=== PATIENT | male | born 1980 | race Caucasian/White ===

== ENCOUNTER 2025-01-25 21:00 | Emergency (ER) | payer BC, OTHER ==
[2025-01-25 21:15] VITALS: TEMP 98; BMI 38.2
[2025-01-25] MEDS ORDERED: FAMOTIDINE 20 MG/50 ML IVPB 20 MG/50 ML MG IVPB ONE (21:44)
[2025-01-25] MEDS ORDERED: PANTOPRAZOLE SODIUM 40 MG VIAL ONE (21:44)
[2025-01-25] MEDS: FAMOTIDINE 20 MG/50 ML IVPB 20 MG/50 ML MG IVPB ONE (21:56)
[2025-01-25] MEDS: PANTOPRAZOLE SODIUM 40 MG VIAL IVPUSH ONE (21:56)
[2025-01-25] MEDS: SODIUM CHLORIDE 0.9% 500 ML INFUS.BAG IV ONE (21:56)
[2025-01-25 22:20] LABS: ALBUMIN 3.6 g/dl (3.4-5.0); BLOOD UREA NITROGEN 16.2 mg/dL (7-18); CALCIUM 9.7 mg/dL (8.5-10.1)
[2025-01-25 22:23] LABS: CREATININE 1.2 mg/dL (0.55-1.3)
[2025-01-25 22:25] LABS: BILIRUBIN,TOTAL 0.5 mg/dL (0.2-1); TOT PROT 6.8 g/dl (6.4-8.2)
[2025-01-25 23:16] LABS: HCV DIAGNOSTIC IN-HOUSE W/RFLX NON-REACTIVE (NONREACTIVE); HIV INTERPRETATION NEGATIVE (NEGATIVE)
[2025-01-25] MEDS ORDERED: KETOROLAC TROMETHAMINE 15 MG/ML VIAL ONE (23:20)
[2025-01-25] MEDS: KETOROLAC TROMETHAMINE 15 MG/ML VIAL IVPUSH ONE (23:22)
[2025-01-26 00:17] LABS: EPI CELLS 2 /uL (0-25.1); HYALINE CASTS 0 /uL (0-3.1); PH,URINE 5.5 (5.0-8.0); URINE APPEARANCE CLEAR; URINE BACTERIA 7 /uL (0-1359); URINE BILIRUBIN NEGATIVE (NEGATIVE); URINE COLOR YELLOW; URINE GLUCOSE (UA) NEGATIVE (NEGATIVE); URINE KETONE NEGATIVE (NEGATIVE); URINE LEUK ESTERASE NEGATIVE (NEGATIVE); URINE NITRITE NEGATIVE (NEGATIVE); URINE PROTEIN 1+ (NEGATIVE); URINE RBC 6 /uL (0-23.9); URINE UROBILINOGEN 0.2 mg/dL (0.2-1.0); URINE WBC 3 /uL (0-25.8)
[2025-01-26] MEDS ORDERED: KETOROLAC TROMETHAMINE 15 MG/ML VIAL ONE (00:46)
[2025-01-26] MEDS: KETOROLAC TROMETHAMINE 15 MG/ML VIAL IVPUSH ONE (01:00)
[2025-01-26] MEDS ORDERED: morphine SULFATE 4 MG/ML VIAL ONE (02:22)
[2025-01-26 02:31] VITALS: BP 133/75; PULSE 64; RESP 20
[2025-01-26] MEDS: morphine SULFATE 4 MG/ML VIAL IVPUSH ONE (02:31)
== END 2025-01-26 02:57 | disposition home or self-care (01) ==
LOC: JER 21:00
PROC: 3E033GC Introduction of Other Therapeutic Substance into Peripheral Vein, Percutaneous Approach (ICD-10-PCS; principal; 2025-01-25)
PROC: 3E033GC Introduction of Other Therapeutic Substance into Peripheral Vein, Percutaneous Approach (ICD-10-PCS; 2025-01-25)
PROC: 3E0333Z Introduction of Anti-inflammatory into Peripheral Vein, Percutaneous Approach (ICD-10-PCS; 2025-01-25)
PROC: 3E033NZ Introduction of Analgesics, Hypnotics, Sedatives into Peripheral Vein, Percutaneous Approach (ICD-10-PCS; 2025-01-26)
PROC: 3E0333Z Introduction of Anti-inflammatory into Peripheral Vein, Percutaneous Approach (ICD-10-PCS; 2025-01-26)
DX: R10.13 Epigastric pain (principal); R19.7 Diarrhea, unspecified; T39.1X1A Poisoning by 4-Aminophenol derivatives, accidental (unintentional), initial encounter; R10.11 Right upper quadrant pain; M54.6 Pain in thoracic spine; R11.0 Nausea; R30.0 Dysuria
CPT/HCPCS: 36415; 74176-TC; 80053; 80307; 81003; 86803; 87086; 87389; 99285-25